=== PATIENT | male | born 1990 | race Two or more races ===

== ENCOUNTER 2019-11-26 13:52 | Emergency (ER) | payer SELFPAY ==
[~2019-11-26] VITALS: Ht 182.9 cm; Wt 95.0 kg
[2019-11-26 14:12] VITALS: BP 146/82
[2019-11-26] MEDS ORDERED: LIDOCAINE-MPF 1%, 5ML ONE (14:29)
[2019-11-26] MEDS ORDERED: LIDOCAINE-MPF 1%, 5ML INFIL ONE (14:30)
[2019-11-26] MEDS ORDERED: ACETAMINOPHEN 325 MG TABLET ONE (14:39)
--- NOTE | 2019-11-26 14:48 | NUR ---
i&d completed by cuca, wound dressed by this RN. report given to SAMAN Mooney.
[2019-11-26] MEDS ORDERED: ACETAMINOPHEN 325 MG TABLET PO ONE (15:00)
== END 2019-11-26 15:03 | disposition home or self-care (01) ==
LOC: ED 14:45
DX: L02.11 Cutaneous abscess of neck (principal); L04.0 Acute lymphadenitis of face, head and neck
CPT/HCPCS: 10060; 99283

== ENCOUNTER 2019-11-29 11:56 | Emergency (ER) | payer SELFPAY ==
[~2019-11-29] VITALS: Ht 182.9 cm; Wt 96.3 kg
[2019-11-29 12:01] VITALS: BP 147/75
--- NOTE | 2019-11-29 13:14 | NUR ---
I&D OF WOUND ON NECK PERFORMED BY PA, PACKED AND DRESSED.
== END 2019-11-29 13:16 | disposition home or self-care (01) ==
LOC: ED 13:10
DX: Z48.01 Encounter for change or removal of surgical wound dressing (principal); L72.3 Sebaceous cyst; F17.200 Nicotine dependence, unspecified, uncomplicated
CPT/HCPCS: 99282

== ENCOUNTER 2019-11-30 15:12 | Emergency (ER) | payer SELFPAY ==
[~2019-11-30] VITALS: Ht 182.9 cm; Wt 96.6 kg
[2019-11-30 15:15] VITALS: BP 132/92
== END 2019-11-30 15:48 | disposition home or self-care (01) ==
LOC: ED 15:40
DX: Z48.01 Encounter for change or removal of surgical wound dressing (principal); F17.200 Nicotine dependence, unspecified, uncomplicated
CPT/HCPCS: 99282